=== PATIENT | female | born 2000 | race Caucasian/White ===

== ENCOUNTER 2024-08-03 12:15 | Emergency (ER) | payer MEDICAID ==
[~2024-08-03] VITALS: Ht 160 cm; Wt 47.7 kg
[2024-08-03 12:38] VITALS: BP 130/88; PULSE 84; RESP 20; TEMP 98.3; O2SAT 98
[2024-08-03] MEDS ORDERED: PSEU-303 PO (13:39)
[2024-08-03] MEDS: pseudoephedrine 30mg tablet PO STA (13:57)
== END 2024-08-03 14:37 | disposition home or self-care (01) ==
LOC: ER 12:16
DX: J06.9 Acute upper respiratory infection, unspecified (principal); R05.9 Cough, unspecified; D64.9 Anemia, unspecified; Z91.030 Bee allergy status; Z91.018 Allergy to other foods; Z79.899 Other long term (current) drug therapy
CPT/HCPCS: 99283